=== PATIENT | male | born 1990 | race Caucasian/White ===

== ENCOUNTER 2017-07-12 09:47 | Outpatient (CLI) | payer MEDICAID ==
[~2017-07-12] VITALS: Ht 175.3 cm; Wt 96.8 kg
[2017-07-12] MEDS ORDERED: FLOMAX0.4 MG PO (10:09)
[2017-07-12] MEDS ORDERED: TENORMIN50 MG PO (10:10)
[2017-07-12] MEDS ORDERED: ATIVAN1 MG PO (10:10)
[2017-07-12] MEDS ORDERED: TIROSINT88 MCG PO (10:11)
[2017-07-12] MEDS ORDERED: COZAAR100 MG PO (10:11)
[2017-07-12] MEDS ORDERED: LIPITOR40 MG PO (10:12)
[2017-07-12] MEDS ORDERED: BUMEX2 MG PO (10:12)
[2017-07-12] MEDS ORDERED: XARELTO20 MG PO (10:13)
[2017-07-12] MEDS ORDERED: KLOR-CON M2020 MEQ PO (10:14)
[2017-07-12] MEDS ORDERED: PREDNISONE20 MG PO (10:14)
[2017-07-12 10:24] VITALS: BP 171/92; Ht 175.3 cm; Wt 96.8 kg
[2017-07-12 11:09] LABS: BASOPHILS 0.3 % (0-2); EOSINOPHILS 0.5 % (0-7); HEMATOCRIT 39.8 % (42.0-54.0); HEMOGLOBIN 12.9 g/dL (13.5-17.5); IMMATURE GRANULOCYTES 0.7 % (0-5); LYMPHOCYTES 28.4 % (15-50); MCH 29.4 pg (26.0-34.0); MCHC 32.4 g/dL (31.0-37.0); MCV 90.7 fL (80.0-100.0); MEAN PLATELET VOLUME 10.3 fL (7.4-10.4); MONOCYTES 7.4 % (2-11); NEUTROPHILS 62.7 % (40-80); PLATELET COUNT 235 10x3/uL (130-400); RBC 4.39 10x6/uL (4.20-6.10); RDW 14.3 % (11.5-14.5); WBC 10.9 10x3/uL (4.8-10.8)
[2017-07-12 11:28] LABS: INR 0.85 (0.85-1.17); PROTIME 11.3 SECONDS (11.6-15.0)
[2017-07-12 11:32] LABS: ANION GAP 10.2 mmol/L (8-16); CALCIUM 7.5 mg/dL (8.5-10.1); CARBON DIOXIDE 23.6 mmol/L (21.0-32.0); CREATININE - SERUM 1.7 mg/dL (0.6-1.3); POTASSIUM - SERUM 3.8 mmol/L (3.5-5.1)
== END 2017-07-12 16:35 | disposition home or self-care (01) ==
LOC: D.SP 09:47 → D.RAD 11:00 → D.SP 11:00
PROVIDERS: Radiology Vascular & Interventional Radiology
DX: R80.9 Proteinuria, unspecified (principal); N04.9 Nephrotic syndrome with unspecified morphologic changes; Z01.812 Encounter for preprocedural laboratory examination

== ENCOUNTER 2017-08-22 07:36 | Outpatient (CLI) | payer MEDICAID ==
[~2017-08-22] VITALS: Ht 175.3 cm; Wt 85.2 kg
[2017-08-22] VITALS (9 sets, daily range): BP systolic 107–150; BP diastolic 65–90; Ht 175.3 cm; Wt 85.2 kg
[~2017-08-22 07:36] MED LIST: ATIVAN1 MG PO; BUMEX2 MG PO; COZAAR100 MG PO; FLOMAX0.4 MG PO; KLOR-CON M2020 MEQ PO; LIPITOR40 MG PO; PREDNISONE20 MG PO; TENORMIN50 MG PO; TIROSINT88 MCG PO; XARELTO20 MG PO
[2017-08-22 08:07] LABS: BASOPHILS 0.2 % (0-2); EOSINOPHILS 0.3 % (0-7); HEMATOCRIT 36.1 % (42.0-54.0); HEMOGLOBIN 11.7 g/dL (13.5-17.5); IMMATURE GRANULOCYTES 0.9 % (0-5); LYMPHOCYTES 20.7 % (15-50); MCHC 32.4 g/dL (31.0-37.0); MCV 89.4 fL (80.0-100.0); MEAN PLATELET VOLUME 9.4 fL (7.4-10.4); MONOCYTES 7.1 % (2-11); NEUTROPHILS 70.8 % (40-80); PLATELET COUNT 252 10x3/uL (130-400); RBC 4.04 10x6/uL (4.20-6.10); RDW 14.5 % (11.5-14.5); WBC 12.4 10x3/uL (4.8-10.8)
[2017-08-22 08:34] LABS: ANION GAP 9.6 mmol/L (8-16); APTT 26.8 SECONDS (22.8-39.4); CALCIUM 7.7 mg/dL (8.5-10.1); CARBON DIOXIDE 27.2 mmol/L (21.0-32.0); INR 0.81 (0.85-1.17); POTASSIUM - SERUM 3.8 mmol/L (3.5-5.1); PROTIME 10.9 SECONDS (11.6-15.0)
[2017-08-22 14:09] LABS: BASOPHILS 0.3 % (0-2); EOSINOPHILS 0.5 % (0-7); HEMATOCRIT 33.8 % (42.0-54.0); HEMOGLOBIN 10.9 g/dL (13.5-17.5); IMMATURE GRANULOCYTES 0.9 % (0-5); LYMPHOCYTES 27.1 % (15-50); MCH 28.9 pg (26.0-34.0); MCHC 32.2 g/dL (31.0-37.0); MCV 89.7 fL (80.0-100.0); MEAN PLATELET VOLUME 9.5 fL (7.4-10.4); MONOCYTES 7.6 % (2-11); NEUTROPHILS 63.6 % (40-80); PLATELET COUNT 230 10x3/uL (130-400); RBC 3.77 10x6/uL (4.20-6.10); RDW 14.5 % (11.5-14.5); WBC 10.6 10x3/uL (4.8-10.8)
[2017-08-22 20:04] LABS: BASOPHILS 0.1 % (0-2); EOSINOPHILS 0.1 % (0-7); HEMATOCRIT 33.6 % (42.0-54.0); IMMATURE GRANULOCYTES 0.9 % (0-5); MCH 29.3 pg (26.0-34.0); MCHC 32.7 g/dL (31.0-37.0); MCV 89.4 fL (80.0-100.0); MEAN PLATELET VOLUME 9.8 fL (7.4-10.4); NEUTROPHILS 85.9 % (40-80); PLATELET COUNT 274 10x3/uL (130-400); RBC 3.76 10x6/uL (4.20-6.10); RDW 14.8 % (11.5-14.5); WBC 10.6 10x3/uL (4.8-10.8)
[2017-08-23 04:16] LABS: BASOPHILS 0.2 % (0-2); EOSINOPHILS 0 % (0-7); HEMATOCRIT 31.6 % (42.0-54.0); HEMOGLOBIN 10.2 g/dL (13.5-17.5); IMMATURE GRANULOCYTES 0.6 % (0-5); LYMPHOCYTES 13.2 % (15-50); MCHC 32.3 g/dL (31.0-37.0); MCV 89.8 fL (80.0-100.0); MEAN PLATELET VOLUME 9.9 fL (7.4-10.4); PLATELET COUNT 249 10x3/uL (130-400); RBC 3.52 10x6/uL (4.20-6.10); RDW 14.5 % (11.5-14.5); WBC 11.1 10x3/uL (4.8-10.8)
[2017-08-23 04:27] LABS: ANION GAP 7.9 mmol/L (8-16); CALCIUM 7.7 mg/dL (8.5-10.1); CARBON DIOXIDE 27.9 mmol/L (21.0-32.0); CREATININE - SERUM 3.2 mg/dL (0.6-1.3)
[2017-08-23 04:28] LABS: POTASSIUM - SERUM 4.8 mmol/L (3.5-5.1)
[2017-08-23 04:56] VITALS: BP 117/74
[2017-08-23 08:40] VITALS: BP 132/84
[2017-08-23 09:09] LABS: BASOPHILS 0.1 % (0-2); EOSINOPHILS 0.2 % (0-7); HEMATOCRIT 33.6 % (42.0-54.0); IMMATURE GRANULOCYTES 0.6 % (0-5); LYMPHOCYTES 15.3 % (15-50); MCH 29.3 pg (26.0-34.0); MCHC 32.7 g/dL (31.0-37.0); MCV 89.4 fL (80.0-100.0); MEAN PLATELET VOLUME 9.5 fL (7.4-10.4); MONOCYTES 7.4 % (2-11); NEUTROPHILS 76.4 % (40-80); PLATELET COUNT 246 10x3/uL (130-400); RBC 3.76 10x6/uL (4.20-6.10); RDW 14.4 % (11.5-14.5)
[2017-08-23 09:15] LABS: WBC 14.3 10x3/uL (4.8-10.8)
== END 2017-08-23 13:19 | disposition home or self-care (01) ==
LOC: D.SP 07:36 → D.M2 07:36 → D.RAD 10:00 → D.SP 10:00 → D.M2 12:09 → D.SP 12:09
PROVIDERS: Internal Medicine Nephrology; Radiology Vascular & Interventional Radiology
DX: N04.9 Nephrotic syndrome with unspecified morphologic changes (principal); R80.9 Proteinuria, unspecified; Z01.812 Encounter for preprocedural laboratory examination; I10 Essential (primary) hypertension

== ENCOUNTER 2018-04-08 16:55 | Inpatient (IN) | payer MEDICAID ==
[~2018-04-08] VITALS: Ht 175.3 cm; Wt 85.0 kg
[2018-04-08 21:14] LABS: BASOPHILS 0.4 % (0-2); EOSINOPHILS 0.3 % (0-7); HEMATOCRIT 34.4 % (42.0-54.0); IMMATURE GRANULOCYTES 0.5 % (0-5); LYMPHOCYTES 12.4 % (15-50); MCH 29.7 pg (26.0-34.0); MEAN PLATELET VOLUME 9.4 fL (7.4-10.4); MONOCYTES 5.1 % (2-11); NEUTROPHILS 81.3 % (40-80); PLATELET COUNT 210 10x3/uL (130-400); RDW 13.9 % (11.5-14.5)
[2018-04-08 21:30] LABS: ALBUMIN 0.7 g/dL (3.4-5.0); ANION GAP 13.8 mmol/L (8-16); BILIRUBIN - TOTAL 0.27 mg/dL (0.2-1.3); CARBON DIOXIDE 22.9 mmol/L (21.0-32.0); CREATININE - SERUM 5.2 mg/dL (0.6-1.3); POTASSIUM - SERUM 4.7 mmol/L (3.5-5.1)
[2018-04-08] MEDS ORDERED: K-DUR20 MEQ PO (22:09)
[2018-04-08 22:13] LABS: INR 0.83 (0.85-1.17)
[2018-04-08] MEDS ORDERED: METOLAZONE5 MG PO (22:25)
[2018-04-08] MEDS ORDERED: PREDNISONE10 MG PO (22:26)
[2018-04-08] MEDS ORDERED: XARELTO10 MG PO (22:28)
[2018-04-08] MEDS ORDERED: HEPARIN SOD5000 U/ML SC (22:31)
[2018-04-09] VITALS (7 sets, daily range): BP systolic 123–144; BP diastolic 77–94; Ht 175.3 cm; Wt 85.0 kg
--- NOTE | 2018-04-09 03:31 | NUR ---
PATIENT RESTING IN BED. RESPIRATIONS ARE EVEN AND UNLABORED. NO S/S OF DISTRESS. NO C/O PAIN. CALL LIGHT WITHIN REACH. WILL CPOC.
--- NOTE | 2018-04-09 08:16 | NUR ---
RECEIVED REPORT ON PATIENT WHO IS NPO FOR SURGERY THIS AM. DR MEJIA IN TO SEE PATIENT. NEW ORDERS RECEIVED. PATIENT HAS BEEN NPO SINCE MIDNIGHT. ON ROOM AIR. LEFT FA PIV SEEN WITH SALINE LOCK. PARENTS AT BEDSIDE. WILL MONITOR.
--- NOTE | 2018-04-09 12:39 | NUR ---
TO OR VIA BED.
--- NOTE | 2018-04-09 16:09 | NUR ---
STILL OFF FLOOR AT THIS TIEM.
--- NOTE | 2018-04-09 16:59 | NUR ---
RECEIVED BACK TO ROOM WITH SLING TO LEFT ARM. COMPRESSED NIKKI DRAIN SEEN TO ABDOMINAL AREA. IV OF NS INFUSING PER GRAVITY TO RIGHT HAND.
--- NOTE | 2018-04-09 17:38 | NUR ---
PAGE INTO [facility]LENA SULLIVAN APN FOR CONTINUATION OF MEDS. AWAITING CALL BACK.
--- NOTE | 2018-04-09 17:43 | NUR ---
MARLENA TO CALL BACK WITH NEW ORDERS.
--- NOTE | 2018-04-09 18:13 | NUR ---
WE ARE TO CONTINUE HOME MEDS BUT HOLD THE POTASSIUM AND METOLZONE AND XARELTO FOR NOW PER [facility] SULLIVAN APN.
--- NOTE | 2018-04-09 18:15 | NUR ---
PER DR MEJIA NOTE, PATIENT IS TO RESUME HIS LOVENOX PRIOR TO ADMISSION BUT I DO NOT SEE IT ON THE [facility] RECONCILATION LIST. PATIENT WAS TAKING HEPARIN AT HOME AND THIS WAS VERIFIED BY MYSELF WITH THE PATIENT AND THE PARENTS.
--- NOTE | 2018-04-09 19:15 | NUR ---
RESUMING CARE. PT LAYING IN BED, IV RT HAND SL , LEFT AVF DONE TODAY RESERVED LEFT ARM PT HAD OPEN UMBILICAL HERNIA NIKKI DRAIN IN PLACE PT C/O OF PAIN IN ABDOMEN ADVISED PT WE WOULD CALL TO GET SOMETHING FOR PAIN CL IN REACH WILL CONT TO MONITOR
--- NOTE | 2018-04-09 19:19 | NUR ---
CALL PLACED TO [facility]LENA SULLIVAN APN FOR PAIN MEDICATIONS FOR PATIENT. AWAITING CALL BACK.
--- NOTE | 2018-04-09 19:23 | NUR ---
MARLENA SULLIVAN APN TO CALL BACK WITH NEW ORDERS.
[2018-04-10 00:31] VITALS: BP 138/96
--- NOTE | 2018-04-10 06:00 | NUR ---
PT HAS NOT VOIDING SINCE SURGERY , HAD MARLENA SULLIVAN PAGED, I ADVISED I BLADDER SCANNED PT AND HE WAS HOLDING 877ML SE ADVISED TO DO AN IN AND OUT CATH. AND GIVE PTS 0900 FLOMAX, IN AND OUT DONE FLOMAX GIVEN TOLERATED WELL WILL CONT TO MONITOR
[2018-04-10 06:17] VITALS: BP 151/99
--- NOTE | 2018-04-10 07:24 | NUR ---
ROUNDING DONE WITH PATIENT INFORMED THAT HE IS NEEDING TO GET OUT OF BED FOR BREAKFAST THIS AM. LEFT ARM IS IN SLING AT THIS TIME. NIKKI DRAIN SEEN TO LEFT ABDOMINAL AREA WITH C/D/I DRESSING TO UMBILICAL AREA. DRAIN IS COMPRESSED. FAMILY AT BEDSIDE. SALINE LOCK PIV SEEN TO RIGHT HAND.
[2018-04-10 08:35] VITALS: BP 144/99
[2018-04-10 11:36] VITALS: BP 143/91
--- NOTE | 2018-04-10 13:48 | NUR ---
PATIENT WITH FAMILY BEEN AMBULATING IN THE HALLWAY UP TO THE NURSE STATION.
--- NOTE | 2018-04-10 15:03 | NUR ---
CALLED TO ROOM WITH COMPLAINT OF NOT VOIDING. BLADDER SCAN DONE WITH RESIDUAL OF 375 ML. CALL PLACED TO [facility]LENA SULLIVAN APN FOR ANY FURTHER ORDERS.
[2018-04-10 15:51] VITALS: BP 134/81
--- NOTE | 2018-04-10 16:47 | NUR ---
ANTONIO FERGUSON RN CHARGE TO SPEAK TO ARACELI KNIGHT APN R/T PATIENT NOT VOIDING YET. NO NEW FURTHER ORDERS AT THIS TIME.
--- NOTE | 2018-04-10 18:23 | NUR ---
KRUEGER CATH PLACED PAST USING A 16 FR COUDE TIP.
--- NOTE | 2018-04-10 19:18 | NUR ---
RESUMING PATIENT CARE. PATIENT IS ALERT AND ORIENTED. PATIENT IS STANDING AT SIDE OF BED. DENIES NEEDS. NO S/S OF DISTRESS. NO C/O PAIN. CALL LIGHT WITHIN REACH. WILL CPOC.
[2018-04-10 21:11] VITALS: BP 130/84
[2018-04-11] VITALS (8 sets, daily range): BP systolic 121–148; BP diastolic 54–90
--- NOTE | 2018-04-11 07:40 | NUR ---
ASSESSMENT COMPLETED. ALERT AND ORIENTED. LEFT ARM RESERVED. RIGHT HAND SL. DRSG TO LOWER ABD WITH DRAIN. KRUEGER CATH TO GRAVITY. UP AB RODERICK.WILL MONITOR
[2018-04-11 09:18] LABS: BASOPHILS 0.3 % (0-2); EOSINOPHILS 0.5 % (0-7); HEMATOCRIT 35.3 % (42.0-54.0); IMMATURE GRANULOCYTES 1.1 % (0-5); LYMPHOCYTES 13.1 % (15-50); MCH 29.5 pg (26.0-34.0); MCHC 31.2 g/dL (31.0-37.0); MCV 94.6 fL (80.0-100.0); MEAN PLATELET VOLUME 9.8 fL (7.4-10.4); PLATELET COUNT 222 10x3/uL (130-400); RBC 3.73 10x6/uL (4.20-6.10); RDW 14.5 % (11.5-14.5); WBC 11.3 10x3/uL (4.8-10.8)
[2018-04-11 09:41] LABS: ALBUMIN 0.9 g/dL (3.4-5.0); ANION GAP 17.5 mmol/L (8-16); BILIRUBIN - TOTAL 0.23 mg/dL (0.2-1.3); CALCIUM 7.7 mg/dL (8.5-10.1); CARBON DIOXIDE 19.9 mmol/L (21.0-32.0); MAGNESIUM - SERUM 3.1 mg/dL (1.8-2.4); POTASSIUM - SERUM 4.4 mmol/L (3.5-5.1); PROTEIN - SERUM 4.5 g/dL (6.4-8.2)
[2018-04-11 10:02] LABS: PHOSPHOROUS 10.8 mg/dL (2.5-4.9)
--- NOTE | 2018-04-11 12:00 | NUR ---
RESTING QUIETLY NAD NOTED
--- NOTE | 2018-04-11 13:40 | MORECARE ---
CASE MANAGEMENT DISCHARGE SUMMARY PATIENT: ISIDRO JONES UNIT: [id number] ADM DATE: 04/08/18 AGE: 27 : 88 SEX: M ROOM/BED: D.2131 AUTHOR: KRUNAL TELLES PHYSICIAN: REFERRING PHYSICIAN: JL MCKEON MD DATE OF SERVICE: 04/11/18 Discharge Plan Patient Name: ISIDRO JONES Facility: [facility]:[place] : 1990 Planned Disposition: Home with Home Health Anticipated Discharge Date: 04/12/18 Discharge Date: Expected LOS: 4 Initial Reviewer: [id number] Initial Review Date: 04/11/2018 Generated: 04/11/18 2:40 pm DCPIA - Discharge Planning Initial Assessment Updated by [email or web address]: Elliott Powell on 04/11/18 1:37 pm * Is the patient Alert and Oriented? Yes * How many steps to enter\exit or inside your home? NONE * PCP JL MCKEON * [facility] * Preadmission Environment Home with Family * ADLs Independent * Equipment Other * Other Equipment BLOOD PRESSURE CUFF NO MEDICAL EQUIPMENT PROVIDER PREFERENCE * List name and contact numbers for known caregivers / representatives who currently or will assist patient after discharge: HINA JONES, MOTHER, * Verbal permission to speak to the caregivers and representatives has been obtained from the patient. Yes * Community resources currently utilized None * Please name any agencies selected above. NONE * Additional services required to return to the preadmission environment? Yes * Can the patient safely return to the preadmission environment? Yes * Has this patient been hospitalized within the prior 30 days at any hospital? No External Providers External Provider: [facility] Next Contact Date: 04/11/2018 Service Request Date: Service Type: Resolution: Reviewer: Comments: Coverage Notice Reviewer: [id number] - Elliott Powell Notice Issued Date-Time: 04/11/2018 11:20 Notice Type: Patient Choice Letter Notice Delivered To: Patient Relationship to Patient: Veneer Jointer Name: Delivery Method: HAND - Hand Delivered Dolores Days: Prior Verbal Notification: Recipient Understood Notice: Yes Recipient Signature: Yes Med Rec Note Co-signed by Attending: Coverage Notice Comment: NO HOME HEALTH PREFERENCE Patient Name: ISIDRO JONES Page [id number] at 1340 All edits/amendments must be made on the electronic document DICTATION DATE: 04/11/18 1340 MOBILE MARKETING MANAGER: JOHN 04/11/18 1340 RPT#: [id number] DC DATE: STATUS: ADM IN [facility] [address] [place] [address] END OF REPORT
--- NOTE | 2018-04-11 13:55 | MORECARE ---
CASE MANAGEMENT DISCHARGE SUMMARY PATIENT: ISIDRO JONES UNIT: [id number] ADM DATE: 04/08/18 AGE: 27 : 88 SEX: M ROOM/BED: D.2138 AUTHOR: KRUNAL TELLES PHYSICIAN: REFERRING PHYSICIAN: JL MCKEON MD DATE OF SERVICE: 04/11/18 Discharge Plan Patient Name: ISIDRO JONES Facility: [facility]:[place] : 1990 Planned Disposition: Home with Home Health Anticipated Discharge Date: 04/12/18 Discharge Date: Expected LOS: 4 Initial Reviewer: [id number] Initial Review Date: 04/11/2018 Generated: 04/11/18 2:55 pm Comments DCP- Discharge Planning Updated by [id number]: Elliott Powell on 04/11/18 12:[address] Patient Name: ISIDRO JONES Admission Status: Elective Accout number: [id number] Admission Date: 04-08-2018 : 1990 Admission Diagnosis: Attending: JL MCKEON Current LOS: 3 Anticipated DC Date: 04-12-2018 Planned Disposition: Home with Home Health Primary Insurance: [place] PRIVATE [place] PLANNED EXTERNAL PROVIDER: [facility] Discharge Planning Comments: CM RECEIVED HOME HEALTH ORDER, MET WITH PT IN ROOM TO DISCUSS DISCHARGE PLANNING AND NEEDS. PT REPORTS LIVING AT HOME INDEPENDENTLY WITH PARENTS AND ADULT SISTER. PT HAS BLOOD PRESSURE MONITOR AND NO MEDICAL EQUIPMENT PROVIDER PREFERENCE. PT HAS NO OUTSIDE SERVICES ASSISTING IN THE HOME. PT IS NOT YET DOING OUTPATIENT DIALYSIS, BUT HAD A FISTULA CREATED FOR WHEN HE MAY NEED IT. CM DISCUSSED AVAILABILITY OF HOME HEALTH, REHAB SERVICES AND MEDICAL EQUIPMENT. PT WILL ACCEPT HOME HEALTH, REPORTS H IS SISTER TO BE A TEACHABLE CAREGIVER IN HOME. PT REPORTS HIS PARENTS WILL PICK HIM UP FOR DISCHARGE HOME TOMORROW. PT HAS NO PREFERENCE ON HOME HEALTH PROVIDER, CHOICE LETTER SIGNED. PT DENIES FURTHER DISCHARGE NEEDS. CM SPOKE TO TAMIKA OF [facility], DISCUSSED REFERRAL. TAMIKA THINKS PT MAY BE WITHIN THE SERVICE AREA FOR [facility]. CM CALLED [facility], , SPOKE TO EZIO AND PROVIDED REFERRAL INFORMATION. CM FAXED REFERRAL FOR HOME HEALTH TO [facility] AT [phone]. CM WAITING ACCEPTANCE DETERMINATION FROM [facility]. Charger Operator Helper: Elliott Powell DCPIA - Discharge Planning Initial Assessment Updated by [email or web address]: Elliott Powell on 04/11/18 1:37 pm * Is the patient Alert and Oriented? Yes * How many steps to enter\exit or inside your home? NONE * PCP JL MCKEON * [facility] * Preadmission Environment Home with Family * ADLs Independent * Equipment Other * Other Equipment BLOOD PRESSURE CUFF NO MEDICAL EQUIPMENT PROVIDER PREFERENCE * List name and contact numbers for known caregivers / representatives who currently or will assist patient after discharge: HINA JONES, MOTHER, * Verbal permission to speak to the caregivers and representatives has been obtained from the patient. Yes * Community resources currently utilized None * Please name any agencies selected above. NONE * Additional services required to return to the preadmission environment? Yes * Can the patient safely return to the preadmission environment? Yes * Has this patient been hospitalized within the prior 30 days at any hospital? No Coverage Notice Reviewer: [id number] - Elliott Powell Notice Issued Date-Time: 04/11/2018 11:20 Notice Type: Patient Choice Letter Notice Delivered To: Patient Relationship to Patient: Fan Engine Engineer Name: Delivery Method: HAND - Hand Delivered Dolores Days: Prior Verbal Notification: Recipient Understood Notice: Yes Recipient Signature: Yes Med Rec Note Co-signed by Attending: Coverage Notice Comment: NO HOME HEALTH PREFERENCE Last DP export: 04/11/18 12:40 p Patient Name: ISIDRO JONES Page 15459 at 1355 All edits/amendments must be made on the electronic document DICTATION DATE: 04/11/18 1355 E COMMERCE ARCHITECT: JOHN 04/11/18 1355 RPT#: [id number] DC DATE: STATUS: ADM IN [facility] [address] [place] [address] END OF REPORT
--- NOTE | 2018-04-11 17:30 | MORECARE ---
CASE MANAGEMENT DISCHARGE SUMMARY PATIENT: ISIDRO JONES UNIT: [id number] ADM DATE: 04/08/18 AGE: 27 : 88 SEX: M ROOM/BED: D.2139 AUTHOR: KRUNAL TELLES PHYSICIAN: REFERRING PHYSICIAN: JL MCKEON MD DATE OF SERVICE: 04/11/18 Discharge Plan Patient Name: ISIDRO JONES Facility: [facility]:[place] : 1990 Planned Disposition: Home with Home Health Anticipated Discharge Date: 04/12/18 Discharge Date: Expected LOS: 4 Initial Reviewer: [email or web address] Initial Review Date: 04/11/2018 Generated: 04/11/18 6:30 pm Comments DCP- Discharge Planning Updated by [id number]: Elliott Ji on 04/11/18 4:[address] Patient Name: ISIDRO JONES Admission Status: Elective Accout number: [id number] Admission Date: 04-08-2018 : 1990 Admission Diagnosis: Attending: JL MCKEON Current LOS: 3 Anticipated DC Date: 04-12-2018 Planned Disposition: Home with Home Health Primary Insurance: [place] PRIVATE [place] PLANNED EXTERNAL PROVIDER: [facility] Discharge Planning Comments: CM RECEIVED HOME HEALTH ORDER, MET WITH PT IN ROOM TO DISCUSS DISCHARGE PLANNING AND NEEDS. PT REPORTS LIVING AT HOME INDEPENDENTLY WITH PARENTS AND ADULT SISTER. PT HAS BLOOD PRESSURE MONITOR AND NO MEDICAL EQUIPMENT PROVIDER PREFERENCE. PT HAS NO OUTSIDE SERVICES ASSISTING IN THE HOME. PT IS NOT YET DOING OUTPATIENT DIALYSIS, BUT HAD A FISTULA CREATED FOR WHEN HE MAY NEED IT. CM DISCUSSED AVAILABILITY OF HOME HEALTH, REHAB SERVICES AND MEDICAL EQUIPMENT. PT WILL ACCEPT HOME HEALTH, REPORTS H IS SISTER TO BE A TEACHABLE CAREGIVER IN HOME. PT REPORTS HIS PARENTS WILL PICK HIM UP FOR DISCHARGE HOME TOMORROW. PT HAS NO PREFERENCE ON HOME HEALTH PROVIDER, CHOICE LETTER SIGNED. PT DENIES FURTHER DISCHARGE NEEDS. CM SPOKE TO TAMIKA OF [facility], DISCUSSED REFERRAL. TAMIKA THINKS PT MAY BE WITHIN THE SERVICE AREA FOR [facility]. CM CALLED [facility], , SPOKE TO EZIO AND PROVIDED REFERRAL INFORMATION. CM FAXED REFERRAL FOR HOME HEALTH TO [facility] AT [phone]. CM WAITING ACCEPTANCE DETERMINATION FROM [facility]. Electric Motor Repair Supervisor: Elliott Ji Appended by Elliott Ji on 04/11/2018 17:22 STOCKBROKING DEALER: CM RECEIVED CALL FROM EZIO OF [facility], THEY WILL ACCEPT PT AND PLAN FOR HOME HEALTH ADMISSION ON 04-13-18. FOR DISCHARGE, NOTIFY [facility] AT [phone]. FAX DISCHARGE INFORMATION TO [facility] AT [phone]. ELLIOTT JI, CASE MANAGEMENT DCPIA - Discharge Planning Initial Assessment Updated by [email or web address]: Elliott Ji on 04/11/18 1:37 pm * Is the patient Alert and Oriented? Yes * How many steps to enter\exit or inside your home? NONE * PCP JL MCKEON * [facility] * Preadmission Environment Home with Family * ADLs Independent * Equipment Other * Other Equipment BLOOD PRESSURE CUFF NO MEDICAL EQUIPMENT PROVIDER PREFERENCE * List name and contact numbers for known caregivers / representatives who currently or will assist patient after discharge: HINA JONES, MOTHER, * Verbal permission to speak to the caregivers and representatives has been obtained from the patient. Yes * Community resources currently utilized None * Please name any agencies selected above. NONE * Additional services required to return to the preadmission environment? Yes * Can the patient safely return to the preadmission environment? Yes * Has this patient been hospitalized within the prior 30 days at any hospital? No Coverage Notice Reviewer: [id number] - Elliott Ji Notice Issued Date-Time: 04/11/2018 11:20 Notice Type: Patient Choice Letter Notice Delivered To: Patient Relationship to Patient: Music Publisher Name: Delivery Method: HAND - Hand Delivered Dolores Days: Prior Verbal Notification: Recipient Understood Notice: Yes Recipient Signature: Yes Med Rec Note Co-signed by Attending: Coverage Notice Comment: NO HOME HEALTH PREFERENCE Last DP export: 04/11/18 12:55 p Patient Name: ISIDRO JONES Page 92432 at 1730 All edits/amendments must be made on the electronic document DICTATION DATE: 04/11/181729 MEDICARE NURSE: JOHN 04/11/181729 RPT#: [id number] DC DATE: STATUS: ADM IN [facility] [address] [place] [address] END OF REPORT
--- NOTE | 2018-04-11 19:42 | NUR ---
RESUMING PATIENT CARE. PATIENT IS ALERT AND ORIENTED. PATIENT UP WALKING. RESPIRATIONS ARE EVEN AND UNLABORED. DENIES NEEDS. NO S/S OF DISTRESS. NO C/O PAIN. CALL LIGHT WITHIN REACH. WILL CPOC.
[2018-04-12] VITALS: BP 125/78
[2018-04-12 04:00] VITALS: BP 142/81
--- NOTE | 2018-04-12 05:54 | NUR ---
PATIENT INFORMED RN THAT HE IS PASSING GAS. NO BOWEL MOVEMENT.
[2018-04-12 08:33] LABS: BASOPHILS 0.2 % (0-2); HEMOGLOBIN 8.8 g/dL (13.5-17.5); LYMPHOCYTES 9.6 % (15-50); MCH 29.2 pg (26.0-34.0); MCHC 31.8 g/dL (31.0-37.0); MEAN PLATELET VOLUME 9.7 fL (7.4-10.4); MONOCYTES 9.6 % (2-11); NEUTROPHILS 78.6 % (40-80); RBC 3.01 10x6/uL (4.20-6.10); RDW 14.3 % (11.5-14.5)
[2018-04-12 08:45] VITALS: BP 133/89
[2018-04-12 08:52] LABS: HEMATOCRIT 27.7 % (42.0-54.0); PLATELET COUNT 150 10x3/uL (130-400)
[2018-04-12 09:00] LABS: ALBUMIN 0.8 g/dL (3.4-5.0); ANION GAP 18.4 mmol/L (8-16); BILIRUBIN - TOTAL 0.26 mg/dL (0.2-1.3); CARBON DIOXIDE 17.8 mmol/L (21.0-32.0); CREATININE - SERUM 8.3 mg/dL (0.6-1.3); POTASSIUM - SERUM 4.2 mmol/L (3.5-5.1); PROTEIN - SERUM 3.9 g/dL (6.4-8.2)
[2018-04-12 09:06] LABS: CALCIUM 6.6 mg/dL (8.5-10.1); PHOSPHOROUS 10.9 mg/dL (2.5-4.9)
--- NOTE | 2018-04-12 10:37 | NUR ---
RESUMING PT CARE, PT LAYING IN BED ALERT AND ORIENTED X3, STATES PAIN IS AT A 8 ON PAIN SCALE, PAIN MED GIVEN. LINDSEY BARR APRN AT BEDSIDE AND TOLD PT THAT HIS RENAL FUNCTIONS ARE WORSE AND WILL NEED TO START DIALYSIS. CALL LIGHT IN REACH, WILL CONTINUE TO MONITOR AND FOLLOW PLAN OF CARE.
[2018-04-12 15:00] LABS: HEMATOCRIT 27.4 % (42.0-54.0); HEMOGLOBIN 9.3 g/dL (13.5-17.5); MCH 30.6 pg (26.0-34.0); MCHC 33.9 g/dL (31.0-37.0); MCV 90.1 fL (80.0-100.0); MEAN PLATELET VOLUME 9.1 fL (7.4-10.4); NEUTROPHILS 82.9 % (40-80); PLATELET COUNT 154 10x3/uL (130-400); RBC 3.04 10x6/uL (4.20-6.10); RDW 13.3 % (11.5-14.5); WBC 6.7 10x3/uL (4.8-10.8)
[2018-04-12 15:07] LABS: ANION GAP 18.5 mmol/L (8-16); CARBON DIOXIDE 18.3 mmol/L (21.0-32.0); CREATININE - SERUM 8.3 mg/dL (0.6-1.3); POTASSIUM - SERUM 3.8 mmol/L (3.5-5.1)
[2018-04-12 15:10] LABS: CALCIUM 6.9 mg/dL (8.5-10.1)
[2018-04-12 15:57] VITALS: BP 133/77
[2018-04-12 21:30] VITALS: BP 126/73
[2018-04-13 03:47] VITALS: BP 126/78
--- NOTE | 2018-04-13 05:47 | NUR ---
RESTING IN BED WITH EYES CLOSED. NO S/S OF DISTRESS OBSERVED, WILL CONT. POC.
[2018-04-13 05:56] LABS: BASOPHILS 0.1 % (0-2); EOSINOPHILS 0.7 % (0-7); HEMATOCRIT 27.6 % (42.0-54.0); IMMATURE GRANULOCYTES 0.8 % (0-5); MCH 29.6 pg (26.0-34.0); MCHC 32.6 g/dL (31.0-37.0); MCV 90.8 fL (80.0-100.0); MEAN PLATELET VOLUME 10.1 fL (7.4-10.4); MONOCYTES 8.5 % (2-11); NEUTROPHILS 80.9 % (40-80); PLATELET COUNT 170 10x3/uL (130-400); RBC 3.04 10x6/uL (4.20-6.10); RDW 13.6 % (11.5-14.5); WBC 7.1 10x3/uL (4.8-10.8)
[2018-04-13 06:08] LABS: ALBUMIN 0.7 g/dL (3.4-5.0); ANION GAP 19.6 mmol/L (8-16); BILIRUBIN - TOTAL 0.23 mg/dL (0.2-1.3); CARBON DIOXIDE 18.5 mmol/L (21.0-32.0); CREATININE - SERUM 8.7 mg/dL (0.6-1.3); POTASSIUM - SERUM 4.1 mmol/L (3.5-5.1)
[2018-04-13 06:09] LABS: CALCIUM 6.9 mg/dL (8.5-10.1)
--- NOTE | 2018-04-13 07:30 | NUR ---
RECEIVED A/A/OX4. DENIES ANY PAIN AT THIS TIME AND NO REQUESTS VOICED. ASSESSMENT COMPLETED. DRESSING TO [facility] DUE TO HERNIA REPAIR DONE ON 04/09/18. LEFT AVF SITE BRUISED. BRUIT AND THRILL +. KRUEGER PATENT AND DRAINING LIGHT YELLOW COLORED URINE. WILL CPOC. REMAINS NPO FOR SURGERY TODAY.
[2018-04-13 08:46] VITALS: BP 131/80
--- NOTE | 2018-04-13 09:30 | NUR ---
EMMY NEEDS AT THIS TIME. FAMILY AT BS. CALL LIGHT IN REACH. WILL CONT. PLAN OF CARE.
--- NOTE | 2018-04-13 14:17 | NUR ---
TO SURGERY VIA BED.
[2018-04-13 16:25] VITALS: BP 134/65
--- NOTE | 2018-04-13 16:52 | NUR ---
RETURNED TO ROOM VIA BED FROM SURGERY. A/A/OX4. STATES A LITTLE BIT OF STINGING PAIN AROUND INSERTION SITE, BUT HEAVIEST PAIN HAS BEEN ALLEVIATED. V/S STABLE. ICE BAG PLACE TO OPERATIVE SITE.
--- NOTE | 2018-04-13 17:01 | MORECARE ---
CASE MANAGEMENT DISCHARGE SUMMARY PATIENT: ISIDRO JONES UNIT: [id number] ADM DATE: 04/08/18 AGE: 27 : 86 SEX: M ROOM/BED: D.2131 AUTHOR: KRUNAL TELLES PHYSICIAN: REFERRING PHYSICIAN: JL MCKEON MD DATE OF SERVICE: 04/13/18 Discharge Plan Patient Name: ISIDRO JONES Facility: [facility]:[place] : 1990 Planned Disposition: Home with Home Health Anticipated Discharge Date: 04/12/18 Discharge Date: Expected LOS: 4 Initial Reviewer: [email or web address] Initial Review Date: 04/11/2018 Generated: 04/13/18 6:01 pm Comments DCP- Discharge Planning Updated by [id number]: Isamar Ahmadi on 04/13/18 4:[address] ORDER RECEIVED: to make arrangements for OP HD in [place]. CM spoke to Polina MUÑOZ who stated the patient is going to be new to hemodialysis and his first dialysis will be today post hemosplit placement. She stated that the patient will need to go to [place] as that is the only facility close to where he lives. Cm asked that she order the hepatitis panel and HIV. She stated they no longer require HIV testing. Hepatitis panel ordered. Cm faxed Admission intake form, facesheet, H&P, CXR, Progress notes, all hospital labs, with pending hepatitis panel, medication list with allergies listed at the top to [facility]. Cm left Stephanie Kim a message but no return call as it is Sunday and she only works [employer]. No operative report to fax at this time in the chart. CM will continue to follow and will assist as needed with dc plans/needs. Isamar Ahmadi Rn, [facility] DCP- Discharge Planning Updated by [id number]: Elliott Ji on 04/11/18 4:[address] Patient Name: ISIDRO JONES Admission Status: Elective Accout number: [id number] Admission Date: 04-08-2018 : 1990 Admission Diagnosis: Attending: JL MCKEON Current LOS: 3 Anticipated DC Date: 04-12-2018 Planned Disposition: Home with Home Health Primary Insurance: [place] PRIVATE [place] PLANNED EXTERNAL PROVIDER: [facility] Discharge Planning Comments: CM RECEIVED HOME HEALTH ORDER, MET WITH PT IN ROOM TO DISCUSS DISCHARGE PLANNING AND NEEDS. PT REPORTS LIVING AT HOME INDEPENDENTLY WITH PARENTS AND ADULT SISTER. PT HAS BLOOD PRESSURE MONITOR AND NO MEDICAL EQUIPMENT PROVIDER PREFERENCE. PT HAS NO OUTSIDE SERVICES ASSISTING IN THE HOME. PT IS NOT YET DOING OUTPATIENT DIALYSIS, BUT HAD A FISTULA CREATED FOR WHEN HE MAY NEED IT. CM DISCUSSED AVAILABILITY OF HOME HEALTH, REHAB SERVICES AND MEDICAL EQUIPMENT. PT WILL ACCEPT HOME HEALTH, REPORTS H IS SISTER TO BE A TEACHABLE CAREGIVER IN HOME. PT REPORTS HIS PARENTS WILL PICK HIM UP FOR DISCHARGE HOME TOMORROW. PT HAS NO PREFERENCE ON HOME HEALTH PROVIDER, CHOICE LETTER SIGNED. PT DENIES FURTHER DISCHARGE NEEDS. CM SPOKE TO T[facility]IKA OF [facility] , DISCUSSED REFERRAL. TAMIKA THINKS PT MAY BE WITHIN THE SERVICE AREA FOR [facility]. CM CALLED [facility], , SPOKE TO ISAMAR AND PROVIDED REFERRAL INFORMATION. CM FAXED REFERRAL FOR HOME HEALTH TO [facility] AT [phone]. CM WAITING ACCEPTANCE DETERMINATION FROM [facility]. Bank Operations Officer: Elliott Ji Appended by Elliott Ji on 04/11/2018 17:22 RV REPAIR TECHNICIAN: CM RECEIVED CALL FROM ISAMAR OF [facility], THEY WILL ACCEPT PT AND PLAN FOR HOME HEALTH ADMISSION ON 04-13-18. FOR DISCHARGE, NOTIFY [facility] AT [phone]. FAX DISCHARGE INFORMATION TO [facility] AT [phone]. ELLIOTT JI, CASE MANAGEMENT DCPIA - Discharge Planning Initial Assessment Updated by [email or web address]: Elliott Ji on 04/11/18 1:37 pm * Is the patient Alert and Oriented? Yes * How many steps to enter\exit or inside your home? NONE * PCP JL MCKEON * [facility] * Preadmission Environment Home with Family * ADLs Independent * Equipment Other * Other Equipment BLOOD PRESSURE CUFF NO MEDICAL EQUIPMENT PROVIDER PREFERENCE * List name and contact numbers for known caregivers / representatives who currently or will assist patient after discharge: HINA JONES, MOTHER, * Verbal permission to speak to the caregivers and representatives has been obtained from the patient. Yes * Community resources currently utilized None * Please name any agencies selected above. NONE * Additional services required to return to the preadmission environment? Yes * Can the patient safely return to the preadmission environment? Yes * Has this patient been hospitalized within the prior 30 days at any hospital? No Coverage Notice Reviewer: [email or web address] Kati Ji Notice Issued Date-Time: 04/11/2018 11:20 Notice Type: Patient Choice Letter Notice Delivered To: Patient Relationship to Patient: Roof Cement And Paint Maker Helper Name: Delivery Method: HAND - Hand Delivered Dolores Days: Prior Verbal Notification: Recipient Understood Notice: Yes Recipient Signature: Yes Med Rec Note Co-signed by Attending: Coverage Notice Comment: NO HOME HEALTH PREFERENCE Last DP export: 04/11/18 4:30 p Patient Name: ISIDRO JONES Page [id number] at 1701 All edits/amendments must be made on the electronic document DICTATION DATE: 04/13/181699 MATERIAL CONTROL ANALYST: JOHN 04/13/181699 RPT#: [id number] DC DATE: STATUS: ADM IN [facility] [address] [place] [address] END OF REPORT
--- NOTE | 2018-04-13 17:08 | MORECARE ---
CASE MANAGEMENT DISCHARGE SUMMARY PATIENT: ISIDRO JONES UNIT: [id number] ADM DATE: 04/08/18 AGE: 27 : [birth year] SEX: M ROOM/BED: D.2131 AUTHOR: KRUNAL TELLES PHYSICIAN: REFERRING PHYSICIAN: JL MCKEON MD DATE OF SERVICE: 04/13/18 Discharge Plan Patient Name: ISIDRO JONES Facility: [facility]:[place] : 1990 Planned Disposition: Home with Home Health Anticipated Discharge Date: 04/12/18 Discharge Date: Expected LOS: 4 Initial Reviewer: [email or web address] Initial Review Date: 04/11/2018 Generated: 04/13/18 6:08 pm Comments DCP- Discharge Planning Updated by [email or web address]: Isamar Ahmadi on 04/13/18 4:[address] ORDER RECEIVED: to make arrangements for OP HD in [place]. CM spoke to Polina MUÑOZ who stated the patient is going to be new to hemodialysis and his first dialysis will be today post hemosplit placement. She stated that the patient will need to go to [place] as that is the only facility close to where he lives. Cm asked that she order the hepatitis panel and HIV. She stated they no longer require HIV testing. Hepatitis panel ordered. Cm faxed Admission intake form, facesheet, H&P, CXR, Progress notes, all hospital labs, with pending hepatitis panel, medication list with allergies listed at the top to [facility]. Cm left Stephanie Kim a message but no return call as it is Sunday and she only works [employer]. No operative report to fax at this time in the chart. CM will continue to follow and will assist as needed with dc plans/needs. Isamar Ahmadi Rn, [facility] DCP- Discharge Planning Updated by [email or web address]: Elliott Ji on 04/11/18 4:[address] Patient Name: ISIDRO JONES Admission Status: Elective Accout number: [id number] Admission Date: 04-08-2018 : 1990 Admission Diagnosis: Attending: JL MCKEON Current LOS: 3 Anticipated DC Date: 04-12-2018 Planned Disposition: Home with Home Health Primary Insurance: [place] PRIVATE OPTIONS [place] PLANNED EXTERNAL PROVIDER: [facility] Discharge Planning Comments: CM RECEIVED HOME HEALTH ORDER, MET WITH PT IN ROOM TO DISCUSS DISCHARGE PLANNING AND NEEDS. PT REPORTS LIVING AT HOME INDEPENDENTLY WITH PARENTS AND ADULT SISTER. PT HAS BLOOD PRESSURE MONITOR AND NO MEDICAL EQUIPMENT PROVIDER PREFERENCE. PT HAS NO OUTSIDE SERVICES ASSISTING IN THE HOME. PT IS NOT YET DOING OUTPATIENT DIALYSIS, BUT HAD A FISTULA CREATED FOR WHEN HE MAY NEED IT. CM DISCUSSED AVAILABILITY OF HOME HEALTH, REHAB SERVICES AND MEDICAL EQUIPMENT. PT WILL ACCEPT HOME HEALTH, REPORTS H IS SISTER TO BE A TEACHABLE CAREGIVER IN HOME. PT REPORTS HIS PARENTS WILL PICK HIM UP FOR DISCHARGE HOME TOMORROW. PT HAS NO PREFERENCE ON HOME HEALTH PROVIDER, CHOICE LETTER SIGNED. PT DENIES FURTHER DISCHARGE NEEDS. CM SPOKE TO TAMIKA OF CARE , DISCUSSED REFERRAL. TAMIKA THINKS PT MAY BE WITHIN THE SERVICE AREA FOR [facility]. CM CALLED [facility], , SPOKE TO ISAMAR AND PROVIDED REFERRAL INFORMATION. CM FAXED REFERRAL FOR HOME HEALTH TO [facility] AT [phone]. CM WAITING ACCEPTANCE DETERMINATION FROM [facility]. Sorting Grapple Operator: Elliott Ji Appended by Elliott Ji on 04/11/2018 17:22 DENTAL MANAGER: CM RECEIVED CALL FROM ISAMAR OF [facility], THEY WILL ACCEPT PT AND PLAN FOR HOME HEALTH ADMISSION ON 04-13-18. FOR DISCHARGE, NOTIFY [facility] AT [phone]. FAX DISCHARGE INFORMATION TO [facility] AT [phone]. ELLIOTT JI, CASE MANAGEMENT DCPIA - Discharge Planning Initial Assessment Updated by [id number]: Elliott Ji on 04/11/18 1:37 pm * Is the patient Alert and Oriented? Yes * How many steps to enter\exit or inside your home? NONE * PCP JL MCKEON * [facility]acy [facility] * Preadmission Environment Home with Family * ADLs Independent * Equipment Other * Other Equipment BLOOD PRESSURE CUFF NO MEDICAL EQUIPMENT PROVIDER PREFERENCE * List name and contact numbers for known caregivers / representatives who currently or will assist patient after discharge: HINA JONES, MOTHER, * Verbal permission to speak to the caregivers and representatives has been obtained from the patient. Yes * Community resources currently utilized None * Please name any agencies selected above. NONE * Additional services required to return to the preadmission environment? Yes * Can the patient safely return to the preadmission environment? Yes * Has this patient been hospitalized within the prior 30 days at any hospital? No Coverage Notice Reviewer: [id number] Kati Ji Notice Issued Date-Time: 04/11/2018 11:20 Notice Type: Patient Choice Letter Notice Delivered To: Patient Relationship to Patient: Apprenticeship Representative Name: Delivery Method: HAND - Hand Delivered Dolores Days: Prior Verbal Notification: Recipient Understood Notice: Yes Recipient Signature: Yes Med Rec Note Co-signed by Attending: Coverage Notice Comment: NO HOME HEALTH PREFERENCE Last DP export: 04/13/18 4:01 pm Patient Name: ISIDRO JONES Page [id number] at 1708 All edits/amendments must be made on the electronic document DICTATION DATE: 04/13/181706 SALON MANAGER: JOHN 04/13/181706 RPT#: [id number] DC DATE: STATUS: ADM IN [facility] [address] [place] [address] END OF REPORT
--- NOTE | 2018-04-13 17:56 | NUR ---
RESTING QUIETLY. DENIES ANY PAIN, VS STABLE, DRESSING C/D/I.
--- NOTE | 2018-04-13 20:31 | NUR ---
RECIEVED UP AMBULATING AROUND HALLWAY WITH MOTHER. ALERT AND ORIENTED X4. LEFT ARM RESERVED PALPABLE WITH GOOD BRUIT AND TRILL. IV TO RIGHT HAND AND HEMOSPLIT TO RIGHT CHEST. NO REDNESS OR SWELLING TO SITES AND DRESSINGS INTACT. DSG X2 TO LOWER ABD CDI. BRUISING TO LEFT UUPER AND LOWER ARM AND TO LOWER ABD. NIKKI DRAIN TO LL ABD WITH SMALL AMT OF SEROSANGEOUS DRAINAGE. REQUEST A SANDWICH TRAY STATING HE'S HUNGRY. TRAY GIVEN AND DENIES ANY OTHER NEEDS.
--- NOTE | 2018-04-13 22:16 | NUR ---
IN DIALYSIS AT THISTIME.
[2018-04-14] VITALS (7 sets, daily range): BP systolic 117–149; BP diastolic 73–90
[2018-04-14 05:39] LABS: BASOPHILS 0.5 % (0-2); EOSINOPHILS 1.8 % (0-7); HEMATOCRIT 25.8 % (42.0-54.0); HEMOGLOBIN 8.5 g/dL (13.5-17.5); IMMATURE GRANULOCYTES 0.9 % (0-5); LYMPHOCYTES 10.3 % (15-50); MCH 29.6 pg (26.0-34.0); MCHC 32.9 g/dL (31.0-37.0); MCV 89.9 fL (80.0-100.0); MEAN PLATELET VOLUME 10.2 fL (7.4-10.4); MONOCYTES 8.7 % (2-11); NEUTROPHILS 77.8 % (40-80); PLATELET COUNT 165 10x3/uL (130-400); RBC 2.87 10x6/uL (4.20-6.10); RDW 13.7 % (11.5-14.5); WBC 5.6 10x3/uL (4.8-10.8)
[2018-04-14 06:49] LABS: ALBUMIN 0.7 g/dL (3.4-5.0); BILIRUBIN - TOTAL 0.18 mg/dL (0.2-1.3); CARBON DIOXIDE 22.8 mmol/L (21.0-32.0); PROTEIN - SERUM 3.8 g/dL (6.4-8.2)
[2018-04-14 06:53] LABS: ANION GAP 14.4 mmol/L (8-16); CREATININE - SERUM 6.2 mg/dL (0.6-1.3); POTASSIUM - SERUM 3.2 mmol/L (3.5-5.1)
[2018-04-14 06:55] LABS: CALCIUM 6.7 mg/dL (8.5-10.1)
--- NOTE | 2018-04-14 07:23 | NUR ---
ROUNDING DONE WITH PATIENT RESTING WITH HOB UP AT 30 DEGREES. RESP ARE EVEN. MOTHER IS ASLEEP IN CHAIR. RIGHT HAND PIV SEEN WITH SALINE LOCK. RIGHT CHEST HEMISPLIT SEEN WITH C/D/I DRESSING. RESEV. LEFT ARM WITH AVF. WILL CHECK FOR BRUIT AND THRILL WHEN AWAKE. KRUEGER CATH SEEN PATENT WITH CLEAR YELLOW URINE.
--- NOTE | 2018-04-14 11:19 | NUR ---
AM MEDS GIVEN. PATIENT IS INSTRCUTED IN BLADDER TRAINING AND TO CALL ME IF HE BECOMES TO UNCOMFORTABLE. KRUEGER CATH IS CLAMPED AT THIS TIME.
--- NOTE | 2018-04-14 14:08 | NUR ---
1407-PATIENT EDUCATION GIVEN FOR DIALYSIS AND DIET R/T HIGH AND LOW POTASSIUM.
--- NOTE | 2018-04-14 16:36 | NUR ---
BLADDER RELEASED FROM CLAMPED, EMPTIED 350 CC URINE. CLAMPED AGAIN.
--- NOTE | 2018-04-14 17:50 | NUR ---
SITTING IN CHAIR EATING SUPPER. DENIES NEEDS AT THIS TIME. STILL WITH BLADDER TRAINING.
--- NOTE | 2018-04-14 20:03 | NUR ---
RECIEVED UP IN BED WITH EYES OPEN AND TV ON. ALERT AND ORIENTED X 4. CONT. TO DO BLADDER TRAINING. NIKKI DRAIN IN PLACE WITH NO DRAINAGE AT THIS TIME F/C INTACT WITH SOME CLEAR YELLOW URINE IN DRAINAGE BAG. IV TO RIGHT HAND SL WITH DSG INTACT. HEMOSPLIT TO RIGHT CHEST WITH DSG CDI. LEFT ARM RESERVED D/T AVF.
[2018-04-15 00:36] VITALS: BP 125/74
[2018-04-15 05:29] VITALS: BP 134/863
[2018-04-15 06:56] LABS: BASOPHILS 0.5 % (0-2); EOSINOPHILS 1.8 % (0-7); HEMATOCRIT 26.8 % (42.0-54.0); HEMOGLOBIN 8.7 g/dL (13.5-17.5); IMMATURE GRANULOCYTES 0.9 % (0-5); LYMPHOCYTES 13.1 % (15-50); MCH 29.4 pg (26.0-34.0); MCHC 32.5 g/dL (31.0-37.0); MCV 90.5 fL (80.0-100.0); MEAN PLATELET VOLUME 10.2 fL (7.4-10.4); NEUTROPHILS 72.7 % (40-80); PLATELET COUNT 156 10x3/uL (130-400); RBC 2.96 10x6/uL (4.20-6.10); WBC 6.6 10x3/uL (4.8-10.8)
--- NOTE | 2018-04-15 07:20 | NUR ---
ASSESSMENT COMPLETED. AWAKE AND ALERT. HE HAS A HEMOSPLIT IN THE RIGHT CHEST. A LVF IN THE LEFT ARM. DRSG TO ABD WITH A NIKKI DRAIN. KRUEGER CATH PATENT. FOR DIALYSIS TODAY
[2018-04-15 07:22] LABS: ALBUMIN 0.7 g/dL (3.4-5.0); BILIRUBIN - TOTAL 0.18 mg/dL (0.2-1.3); CARBON DIOXIDE 22.1 mmol/L (21.0-32.0); CREATININE - SERUM 6.7 mg/dL (0.6-1.3); POTASSIUM - SERUM 3.1 mmol/L (3.5-5.1); PROTEIN - SERUM 3.8 g/dL (6.4-8.2)
--- NOTE | 2018-04-15 08:03 | NUR ---
RESTING QUIETLY NAD NOTED
[2018-04-15 09:31] VITALS: BP 131/80
[2018-04-15 12:49] VITALS: BP 135/71
--- NOTE | 2018-04-15 13:53 | NUR ---
Nutrition follow-up/consult: Diet: renal PO Intake ~75% average of meals; pt has been npo x several days due to surgery Pt is new to dialysis Albumin very low; may increase as fluid removed. Wt: 184# PO intake is good at this time RDN will order Nepro with meals to increase kcal, protein intake. Following.
--- NOTE | 2018-04-15 14:11 | NUR ---
LOWER ABD INCISION IS HEALING WELL. NO REDNESS, EDEMA OR ODOR. SCANT BLOODY DRAINAGE NOTED AFTER REMOVING DRESSING. NIKKI DRAIN INTACT WITH BULB COMPRESSED. APPROX 5ML OF SANGUINOUS DRAINAGE NOTED IN BULB. INCISION TO LEFT ANTECUBITAL IS INTACT WITH NO SIGNS OF INFECTION. CLEANSED ALL WOUNDS AND PATTED DRY. COVERED NIKKI SITE WITH WHITE BORDERED GAUZE AND ABDOMEN AND LEFT ARM WITH MEPILEX BORDER. PT TOLERATED WELL.
[2018-04-15 17:06] VITALS: BP 132/74
--- NOTE | 2018-04-15 19:27 | NUR ---
ASSESSMENT COMPLETE, PT A&O. RESPERATIONS EVEN ON RA. RIGHT CHEST HEMOSPLIT WITH DRSG INTACT. AV FISTULA NOTED TO LEFT ARM. 2 DRSGS NOTED TO LOWER ABD WITH NIKKI DRAIN TO LEFT DRSG WITH SMALL AMOUNT OF SEROUS SANGUINEOUS FLUID NOTED IN BULB. KRUEGER DRAINING TO GRAVITY. PT DENIES PAIN OR NEEDS, BED LOW, CL IN REACH.
[2018-04-15 20:00] VITALS: BP 128/67
[2018-04-16] VITALS: BP 130/76
[2018-04-16 04:58] LABS: BASOPHILS 0.3 % (0-2); EOSINOPHILS 1.2 % (0-7); HEMATOCRIT 28.3 % (42.0-54.0); HEMOGLOBIN 8.9 g/dL (13.5-17.5); IMMATURE GRANULOCYTES 0.8 % (0-5); LYMPHOCYTES 13.3 % (15-50); MCH 28.8 pg (26.0-34.0); MCHC 31.4 g/dL (31.0-37.0); MCV 91.6 fL (80.0-100.0); MEAN PLATELET VOLUME 10.1 fL (7.4-10.4); MONOCYTES 12.3 % (2-11); NEUTROPHILS 72.1 % (40-80); PLATELET COUNT 164 10x3/uL (130-400); RBC 3.09 10x6/uL (4.20-6.10); RDW 13.8 % (11.5-14.5); WBC 7.4 10x3/uL (4.8-10.8)
[2018-04-16 05:16] LABS: ALBUMIN 0.7 g/dL (3.4-5.0); ANION GAP 10.8 mmol/L (8-16); BILIRUBIN - TOTAL 0.14 mg/dL (0.2-1.3); CALCIUM 7.2 mg/dL (8.5-10.1); CARBON DIOXIDE 27.6 mmol/L (21.0-32.0); CREATININE - SERUM 5.2 mg/dL (0.6-1.3); PHOSPHOROUS 6.1 mg/dL (2.5-4.9); POTASSIUM - SERUM 3.4 mmol/L (3.5-5.1); PROTEIN - SERUM 3.9 g/dL (6.4-8.2)
[2018-04-16 05:20] VITALS: BP 128/81
--- NOTE | 2018-04-16 06:13 | NUR ---
LEFT LOWER ABD NIKKI DRAIN REMOVED, PT TOLERATED WELL.
--- NOTE | 2018-04-16 07:30 | NUR ---
RECEIVED PT UP AMBULATING IN ROOM AAOX4 RESP UNLABORED SKIN W/D DENIES ANY NEEDS AT THIS TIME
[2018-04-16 09:17] VITALS: BP 113/73
[2018-04-16 11:46] VITALS: BP 127/59
[2018-04-16 15:46] VITALS: BP 139/84
--- NOTE | 2018-04-16 19:33 | NUR ---
AMBULATING IN [place]SE[place], GAIT STEADY.
[2018-04-16 20:00] VITALS: BP 128/68
[2018-04-17] VITALS: BP 118/82
--- NOTE | 2018-04-17 03:45 | NUR ---
PT AROUSES TO NURSE ENTERING ROOM. PT ALERT AND ORIENTED. DENIES ANY NEEDS. NO S/S OF DISTRESS. RESP EVEN AND UNLABORED. FAMILY AT BEDSIDE. PT WILL CALL FOR ASSIST WHEN NEEDED. WILL CPOC
[2018-04-17 04:00] VITALS: BP 124/72
[2018-04-17 04:11] LABS: HEPATITIS BE ANTIBODY Negative (Negative)
--- NOTE | 2018-04-17 04:22 | NUR ---
RESTING WITH EYES CLOSED, RESPERATIONS EVEN, NO S/S DISTRESS NOTED.
[2018-04-17 06:11] LABS: BASOPHILS 0.6 % (0-2); EOSINOPHILS 2.3 % (0-7); HEMATOCRIT 28.2 % (42.0-54.0); HEMOGLOBIN 8.9 g/dL (13.5-17.5); IMMATURE GRANULOCYTES 1.1 % (0-5); MCH 29.1 pg (26.0-34.0); MCHC 31.6 g/dL (31.0-37.0); MCV 92.2 fL (80.0-100.0); MEAN PLATELET VOLUME 10.6 fL (7.4-10.4); PLATELET COUNT 166 10x3/uL (130-400); RBC 3.06 10x6/uL (4.20-6.10); RDW 13.7 % (11.5-14.5); WBC 7.2 10x3/uL (4.8-10.8)
[2018-04-17 06:26] LABS: ALBUMIN 0.7 g/dL (3.4-5.0); ALKALINE PHOSPHATASE 40 U/L (46-116); BILIRUBIN - TOTAL 0.23 mg/dL (0.2-1.3); CALC OSMOLALITY 292 mosm/kg (275-300); CALCIUM 7.2 mg/dL (8.5-10.1); CARBON DIOXIDE 25.3 mmol/L (21.0-32.0); CHLORIDE - SERUM 108 mmol/L (98-107); CREATININE - SERUM 5.4 mg/dL (0.6-1.3); GLUCOSE 84 mg/dL (74-106); POTASSIUM - SERUM 3.3 mmol/L (3.5-5.1); PROTEIN - SERUM 3.7 g/dL (6.4-8.2); SODIUM 142 mmol/L (136-145); UREA NITROGEN 42 mg/dL (7-18); eGFR NON AFRICAN AMERICAN 13 mL/min (90-120)
[2018-04-17 06:27] LABS: ALT (SGPT) < 6 U/L (10-68)
--- NOTE | 2018-04-17 07:10 | NUR ---
REPORT RECIEVED FROM SHINGLES ROOFER HELPER. PATIENT AMBULTING IN HALLWAY. MOTHER AT SIDE. PATIENT DENIES ANY NEEDS OR PAIN. WILL CONTINUE WITH PLAN OF CARE.
[2018-04-17 08:04] VITALS: BP 121/76
--- NOTE | 2018-04-17 09:10 | NUR ---
PATIENT ASSESMENT COMPLETED. PATIENT DENIES ANY NEEDS OR PAIN. WILL CONTINUE TO MONITOR,
--- NOTE | 2018-04-17 11:00 | NUR ---
PATIENT IS STABLE AND VS ARE GOOD. PATIENT TO DIALYSIS IN BED VIA HOSPITAL PERSONNEL.
[2018-04-17 11:20] LABS: HEPATITIS BE ANTIGEN Negative (Negative)
--- NOTE | 2018-04-17 13:45 | NUR ---
PATIENT RETURNED FROM DIALYSIS IN BED VIA HOSPITAL PERSONNEL. PATIENT IS STABLE AND VS ARE GOOD. PATIENT REQUEST KRUEGER BE REMOVED. SPOKE WITH SHAINA ASHER.INSTRUCTED TO CLAMP KRUEGER FOR BLADDER TRAINING. KRUEGER CLAMPED. WILL CONTINUE TO MONITOR VERY CLOSELY.
[2018-04-17 14:17] LABS: HEPATITIS C ANTIBODY <0.1 S/CO RAT (0.0-0.9)
--- NOTE | 2018-04-17 14:41 | NUR ---
Provided pt with education information on Renal diet RD following
[2018-04-17 15:28] VITALS: BP 144/82
--- NOTE | 2018-04-17 15:56 | NUR ---
PER DR DEL ROSARIO, PUT IN ORDER TO D/C PT TO HOME. PT TO F/U WITH [facility] ON Sunday04/19/18, ORDER NOTED.
--- NOTE | 2018-04-17 16:47 | NUR ---
Dialysis Coordinator: Patient accepted at [facility] on MWF. Arrive @ 3:50pm for 4:00pm on-time. Patient can start in-center on 04/19/18 @ 3:30pm for paperwork. Patient needs to bring 2 forms of ID and insurance cards to first appointment. Welcome Letter faxed to CM for patient. NISHANT POE.
--- NOTE | 2018-04-17 17:44 | MORECARE ---
CASE MANAGEMENT DISCHARGE SUMMARY PATIENT: ISIDRO JONES UNIT: [id number] ADM DATE: 04/08/18 AGE: 27 : [birth year] SEX: M ROOM/BED: D.2131 AUTHOR: KRUNAL TELLES PHYSICIAN: REFERRING PHYSICIAN: JL MCKEON MD DATE OF SERVICE: 04/17/18 Discharge Plan Patient Name: ISIDRO JONES Facility: [facility]:[place] : 1990 Planned Disposition: Home with Home Health Anticipated Discharge Date: 04/17/18 Discharge Date: Expected LOS: 9 Initial Reviewer: [email or web address] Initial Review Date: 04/11/2018 Generated: 04/17/18 6:44 pm Comments DCP- Discharge Planning Updated by [email or web address]: Elliott Ji on 04/17/18 4:[address] ORDER RECEIVED: to make arrangements for OP HD in [place]. CM spoke to Polina MUÑOZ who stated the patient is going to be new to hemodialysis and his first dialysis will be today post hemosplit placement. She stated that the patient will need to go to [place] as that is the only facility close to where he lives. Cm asked that she order the hepatitis panel and HIV. She stated they no longer require HIV testing. Hepatitis panel ordered. Cm faxed Admission intake form, facesheet, H&P, CXR, Progress notes, all hospital labs, with pending hepatitis panel, medication list with allergies listed at the top to [facility]. Cm left Stephanie Kim a message but no return call as it is Sunday and she only works [employer]. No operative report to fax at this time in the chart. CM will continue to follow and will assist as needed with dc plans/needs. Isamar Ahmadi Rn, [facility] DCP- Discharge Planning Updated by [id number]: Elliott Ji on 04/11/18 4:[address] Patient Name: ISIDRO JONES Admission Status: Elective Accout number: [id number] Admission Date: 04-08-2018 : 1990 Admission Diagnosis: Attending: JL CMKEON Current LOS: 3 Anticipated DC Date: 04-12-2018 Planned Disposition: Home with Home Health Primary Insurance: [place] PRIVATE OPTIONS [place] PLANNED EXTERNAL PROVIDER: [facility] Discharge Planning Comments: CM RECEIVED HOME HEALTH ORDER, MET WITH PT IN ROOM TO DISCUSS DISCHARGE PLANNING AND NEEDS. PT REPORTS LIVING AT HOME INDEPENDENTLY WITH PARENTS AND ADULT SISTER. PT HAS BLOOD PRESSURE MONITOR AND NO MEDICAL EQUIPMENT PROVIDER PREFERENCE. PT HAS NO OUTSIDE SERVICES ASSISTING IN THE HOME. PT IS NOT YET DOING OUTPATIENT DIALYSIS, BUT HAD A FISTULA CREATED FOR WHEN HE MAY NEED IT. CM DISCUSSED AVAILABILITY OF HOME HEALTH, REHAB SERVICES AND MEDICAL EQUIPMENT. PT WILL ACCEPT HOME HEALTH, REPORTS H IS SISTER TO BE A TEACHABLE CAREGIVER IN HOME. PT REPORTS HIS PARENTS WILL PICK HIM UP FOR DISCHARGE HOME TOMORROW. PT HAS NO PREFERENCE ON HOME HEALTH PROVIDER, CHOICE LETTER SIGNED. PT DENIES FURTHER DISCHARGE NEEDS. CM SPOKE TO TAMIKA OF CARE , DISCUSSED REFERRAL. TAMIKA THINKS PT MAY BE WITHIN THE SERVICE AREA FOR [facility]. CM CALLED [facility], , SPOKE TO ISAMAR AND PROVIDED REFERRAL INFORMATION. CM FAXED REFERRAL FOR HOME HEALTH TO [facility] AT [phone]. CM WAITING ACCEPTANCE DETERMINATION FROM [facility]. Clod Puller: Elliott Ji Appended by Elliott Ji on 04/11/2018 17:22 APPLICATION TESTER: CM RECEIVED CALL FROM ISAMAR OF [facility], THEY WILL ACCEPT PT AND PLAN FOR HOME HEALTH ADMISSION ON 04-13-18. FOR DISCHARGE, NOTIFY [facility] AT [phone]. FAX DISCHARGE INFORMATION TO [facility] AT [phone]. ELLIOTT JI, CASE MANAGEMENT DCPIA - Discharge Planning Initial Assessment Updated by [id number]: Elliott Ji on 04/11/18 1:37 pm * Is the patient Alert and Oriented? Yes * How many steps to enter\exit or inside your home? NONE * PCP JL MCKEON * [facility]acy [facility] * Preadmission Environment Home with Family * ADLs Independent * Equipment Other * Other Equipment BLOOD PRESSURE CUFF NO MEDICAL EQUIPMENT PROVIDER PREFERENCE * List name and contact numbers for known caregivers / representatives who currently or will assist patient after discharge: HNIA JONES, MOTHER, * Verbal permission to speak to the caregivers and representatives has been obtained from the patient. Yes * Community resources currently utilized None * Please name any agencies selected above. NONE * Additional services required to return to the preadmission environment? Yes * Can the patient safely return to the preadmission environment? Yes * Has this patient been hospitalized within the prior 30 days at any hospital? No Coverage Notice Reviewer: [email or web address] Kati Ji Notice Issued Date-Time: 04/11/2018 11:20 Notice Type: Patient Choice Letter Notice Delivered To: Patient Relationship to Patient: Orthopaedic Technologist Name: Delivery Method: HAND - Hand Delivered Dolores Days: Prior Verbal Notification: Recipient Understood Notice: Yes Recipient Signature: Yes Med Rec Note Co-signed by Attending: Coverage Notice Comment: NO HOME HEALTH PREFERENCE Last DP export: 04/13/18 4:08 pm Patient Name: ISIDRO JONES Page [id number] at 1744 All edits/amendments must be made on the electronic document DICTATION DATE: 04/17/181743 ELIGIBILITY COUNSELOR: JOHN 04/17/181743 RPT#: [id number] DC DATE: STATUS: ADM IN [facility] [address] [place] [address] END OF REPORT
--- NOTE | 2018-04-17 17:54 | MORECARE ---
CASE MANAGEMENT DISCHARGE SUMMARY PATIENT: ISIDRO JONES UNIT: [id number] ADM DATE: 04/08/18 AGE: 27 : [birth year] SEX: M ROOM/BED: D.2131 AUTHOR: ELFEGO,DOC PHYSICIAN: REFERRING PHYSICIAN: JL MCKEON MD DATE OF SERVICE: 04/17/18 Discharge Plan Patient Name: ISIDRO JONES Facility: [facility]:[place] : 1990 Planned Disposition: Home with Home Health Anticipated Discharge Date: 04/17/18 Discharge Date: Expected LOS: 9 Initial Reviewer: [email or web address] Initial Review Date: 04/11/2018 Generated: 04/17/18 6:54 pm Comments DCP- Discharge Planning Updated by [email or web address]: Petar Ji on 04/17/18 4:[address] Patient Name: ISIDRO JONES Encounter No: [id number] : 1990 Primary Insurance: [employer] [place] PRIVATE OPTIONS [place] Anticipated DC Date: 04-17-2018 Planned Disposition: Home DCP follow-up note: PATIENT HAS RECEIVED NEW DIALYSIS CLINIC ARRANGEMENT FROM PATIENT PATHWAYS COORDINATOR, CM RECEIVED DISCHARGE ORDER. BEDSIDE NURSE INFORMED JEFFREY THAT PT NO LONGER NEEDS HOME HEALTH FOR WOUND CARE AND DRAIN HAS BEEN REMOVED. JEFFREY SPOKE TO PT AND MOTHER IN ROOM, BOTH DENIED DISCHARGE NEEDS, PT'S MOTHER TO TRANSPORT HOME TODAY. CM CALLED [facility] AND CANCELLED HOME HEALTH REFERRAL. PETAR JI CASE EMELY DCP- Discharge Planning Updated by [email or web address]: Petar Ji on 04/17/18 4:[address] ORDER RECEIVED: to make arrangements for OP HD in [place]. JEFFREY spoke to Polina MUÑOZ who stated the patient is going to be new to hemodialysis and his first dialysis will be today post hemosplit placement. She stated that the patient will need to go to [place] as that is the only facility close to where he lives. Jeffrey asked that she order the hepatitis panel and HIV. She stated they no longer require HIV testing. Hepatitis panel ordered. Jeffrey faxed Admission intake form, facesheet, H&P, CXR, Progress notes, all hospital labs, with pending hepatitis panel, medication list with allergies listed at the top to [facility]. Jeffrey left Stephanie Kim a message but no return call as it is Sunday and she only works [employer]. No operative report to fax at this time in the chart. CM will continue to follow and will assist as needed with dc plans/needs. Isamar Ahmadi Rn, [facility] DCP- Discharge Planning Updated by [id number]: Petar Ji on 04/11/18 4:[address] Patient Name: ISIDRO JONES Admission Status: Elective Accout number: [id number] Admission Date: 04-08-2018 : 1990 Admission Diagnosis: Attending: JL MCKEON Current LOS: 3 Anticipated DC Date: 04-12-2018 Planned Disposition: Home with Home Health Primary Insurance: [place] PRIVATE OPTIONS [place] PLANNED EXTERNAL PROVIDER: [facility] Discharge Planning Comments: CM RECEIVED HOME HEALTH ORDER, MET WITH PT IN ROOM TO DISCUSS DISCHARGE PLANNING AND NEEDS. PT REPORTS LIVING AT HOME INDEPENDENTLY WITH PARENTS AND ADULT SISTER. PT HAS BLOOD PRESSURE MONITOR AND NO MEDICAL EQUIPMENT PROVIDER PREFERENCE. PT HAS NO OUTSIDE SERVICES ASSISTING IN THE HOME. PT IS NOT YET DOING OUTPATIENT DIALYSIS, BUT HAD A FISTULA CREATED FOR WHEN HE MAY NEED IT. CM DISCUSSED AVAILABILITY OF HOME HEALTH, REHAB SERVICES AND MEDICAL EQUIPMENT. PT WILL ACCEPT HOME HEALTH, REPORTS H IS SISTER TO BE A TEACHABLE CAREGIVER IN HOME. PT REPORTS HIS PARENTS WILL PICK HIM UP FOR DISCHARGE HOME TOMORROW. PT HAS NO PREFERENCE ON HOME HEALTH PROVIDER, CHOICE LETTER SIGNED. PT DENIES FURTHER DISCHARGE NEEDS. CM SPOKE TO TAMIKA OF [facility], DISCUSSED REFERRAL. TAMIKA THINKS PT MAY BE WITHIN THE SERVICE AREA FOR [facility]. CM CALLED [facility], , SPOKE TO ISAMAR AND PROVIDED REFERRAL INFORMATION. CM FAXED REFERRAL FOR HOME HEALTH TO [facility] AT [phone]. CM WAITING ACCEPTANCE DETERMINATION FROM [facility]. Nurse Sitter: Petar Ji Appended by Petar Ji on 04/11/2018 17:22 PRODUCTION CONTROL SPECIALIST: CM RECEIVED CALL FROM ISAMAR OF [facility], THEY WILL ACCEPT PT AND PLAN FOR HOME HEALTH ADMISSION ON 04-13-18. FOR DISCHARGE, NOTIFY [facility] AT [phone]. FAX DISCHARGE INFORMATION TO [facility] AT [phone]. PETAR JI, CASE MANAGEMENT DCPIA - Discharge Planning Initial Assessment Updated by [email or web address]: Petar Ji on 04/11/18 1:37 pm * Is the patient Alert and Oriented? Yes * How many steps to enter\exit or inside your home? NONE * PCP JL MCKEON * [facility] * Preadmission Environment Home with Family * ADLs Independent * Equipment Other * Other Equipment BLOOD PRESSURE CUFF NO MEDICAL EQUIPMENT PROVIDER PREFERENCE * List name and contact numbers for known caregivers / representatives who currently or will assist patient after discharge: HINA JONES, MOTHER, * Verbal permission to speak to the caregivers and representatives has been obtained from the patient. Yes * Community resources currently utilized None * Please name any agencies selected above. NONE * Additional services required to return to the preadmission environment? Yes * Can the patient safely return to the preadmission environment? Yes * Has this patient been hospitalized within the prior 30 days at any hospital? No Coverage Notice Reviewer: [id number] Kati Ji Notice Issued Date-Time: 04/11/2018 11:20 Notice Type: Patient Choice Letter Notice Delivered To: Patient Relationship to Patient: Sap Gatherer Name: Delivery Method: HAND - Hand Delivered Dolores Days: Prior Verbal Notification: Recipient Understood Notice: Yes Recipient Signature: Yes Med Rec Note Co-signed by Attending: Coverage Notice Comment: NO HOME HEALTH PREFERENCE Last DP export: 04/17/18 4:44 pm Patient Name: ISIDRO JONES Page 23918 at 1754 All edits/amendments must be made on the electronic document DICTATION DATE: 04/17/181752 JUNIOR LINUX ADMINISTRATOR: JOHN 04/17/181752 RPT#: [id number] DC DATE: STATUS: ADM IN [facility] [address] [place] [address] END OF REPORT
--- NOTE | 2018-04-18 13:07 | MORECARE ---
CASE MANAGEMENT DISCHARGE SUMMARY PATIENT: ISIDRO JONES UNIT: [id number] ADM DATE: 04/08/18 AGE: 27 : [birth year] SEX: M ROOM/BED: D.2131 AUTHOR: ELFEGO,DOC PHYSICIAN: REFERRING PHYSICIAN: JL MCKEON MD DATE OF SERVICE: 04/18/18 Discharge Plan Patient Name: ISIDRO JONES Facility: [facility]:[place] : 1990 Planned Disposition: Home with Home Health Anticipated Discharge Date: 04/17/18 Discharge Date: 04/17/2018 Expected LOS: 9 Initial Reviewer: [email or web address] Initial Review Date: 04/11/2018 Generated: 04/18/18 2:07 pm Comments DCP- Discharge Planning Updated by [email or web address]: Petar Ji on 04/17/18 4:[address] Patient Name: ISIDRO JONES Encounter No: [id number] : 1990 Primary Insurance: [employer] [place] PR[place] Anticipated DC Date: 04-17-2018 Planned Disposition: Home DCP follow-up note: PATIENT HAS RECEIVED NEW DIALYSIS CLINIC ARRANGEMENT FROM PATIENT PATHWAYS COORDINATOR, CM RECEIVED DISCHARGE ORDER. BEDSIDE NURSE INFORMED JEFFREY THAT PT NO LONGER NEEDS HOME HEALTH FOR WOUND CARE AND DRAIN HAS BEEN REMOVED. JEFFREY SPOKE TO PT AND MOTHER IN ROOM, BOTH DENIED DISCHARGE NEEDS, PT'S MOTHER TO TRANSPORT HOME TODAY. JEFFREY CALLED [facility] AND CANCELLED HOME HEALTH REFERRAL. FLORIDALMA MAURER DCP- Discharge Planning Updated by [id number]: Petar Ji on 04/17/18 4:[address] ORDER RECEIVED: to make arrangements for OP HD in [place]. JEFFREY spoke to Polina MUÑOZ who stated the patient is going to be new to hemodialysis and his first dialysis will be today post hemosplit placement. She stated that the patient will need to go to [place] as that is the only facility close to where he lives. Jeffrey asked that she order the hepatitis panel and HIV. She stated they no longer require HIV testing. Hepatitis panel ordered. Jeffrey faxed Admission intake form, facesheet, H&P, CXR, Progress notes, all hospital labs, with pending hepatitis panel, medication list with allergies listed at the top to Yaritza. Cm left Stephanie Kim a message but no return call as it is Sunday and she only works [employer]. No operative report to fax at this time in the chart. CM will continue to follow and will assist as needed with dc plans/needs. Isamar Ahmadi Rn, [facility] DCP- Discharge Planning Updated by [id number]: Petar Ji on 04/11/18 4:[address] Patient Name: ISIDRO JONES Admission Status: Elective Accout number: [id number] Admission Date: 04-08-2018 : 1990 Admission Diagnosis: Attending: JL MCKEON Current LOS: 3 Anticipated DC Date: 04-12-2018 Planned Disposition: Home with Home Health [place] PRIVATE [place] PLANNED EXTERNAL PROVIDER: [facility] Discharge Planning Comments: CM RECEIVED HOME HEALTH ORDER, MET WITH PT IN ROOM TO DISCUSS DISCHARGE PLANNING AND NEEDS. PT REPORTS LIVING AT HOME INDEPENDENTLY WITH PARENTS AND ADULT SISTER. PT HAS BLOOD PRESSURE MONITOR AND NO MEDICAL EQUIPMENT PROVIDER PREFERENCE. PT HAS NO OUTSIDE SERVICES ASSISTING IN THE HOME. PT IS NOT YET DOING OUTPATIENT DIALYSIS, BUT HAD A FISTULA CREATED FOR WHEN HE MAY NEED IT. CM DISCUSSED AVAILABILITY OF HOME HEALTH, REHAB SERVICES AND MEDICAL EQUIPMENT. PT WILL ACCEPT HOME HEALTH, REPORTS H IS SISTER TO BE A TEACHABLE CAREGIVER IN HOME. PT REPORTS HIS PARENTS WILL PICK HIM UP FOR DISCHARGE HOME TOMORROW. PT HAS NO PREFERENCE ON HOME HEALTH PROVIDER, CHOICE LETTER SIGNED. PT DENIES FURTHER DISCHARGE NEEDS. CM SPOKE TO TAMIKA OF [facility], DISCUSSED REFERRAL. TAMIKA THINKS PT MAY BE WITHIN THE SERVICE AREA FOR [facility]. CM CALLED [facility], , SPOKE TO ISAMAR AND PROVIDED REFERRAL INFORMATION. CM FAXED REFERRAL FOR HOME HEALTH TO [facility] AT [phone]. CM WAITING ACCEPTANCE DETERMINATION FROM [facility]. Telesales Representative: Petar Ji Appended by Petar Ji on 04/11/2018 17:22 SUPERVISOR STRIPPING: CM RECEIVED CALL FROM ISAMAR OF [facility], THEY WILL ACCEPT PT AND PLAN FOR HOME HEALTH ADMISSION ON 04-13-18. FOR DISCHARGE, NOTIFY [facility] AT [phone]. FAX DISCHARGE INFORMATION TO [facility] AT [phone]. PETAR JI, CASE MANAGEMENT DCPIA - Discharge Planning Initial Assessment Updated by [email or web address]: Petar Ji on 04/11/18 1:37 pm * Is the patient Alert and Oriented? Yes * How many steps to enter\exit or inside your home? NONE * PCP JL MCKEON * Pharmacy [facility] * Preadmission Environment Home with Family * ADLs Independent * Equipment Other * Other Equipment BLOOD PRESSURE CUFF NO MEDICAL EQUIPMENT PROVIDER PREFERENCE * List name and contact numbers for known caregivers / representatives who currently or will assist patient after discharge: HINA JONES, MOTHER, * Verbal permission to speak to the caregivers and representatives has been obtained from the patient. Yes * Community resources currently utilized None * Please name any agencies selected above. NONE * Additional services required to return to the preadmission environment? Yes * Can the patient safely return to the preadmission environment? Yes * Has this patient been hospitalized within the prior 30 days at any hospital? No Coverage Notice Reviewer: [id number] - Petar Ji Notice Issued Date-Time: 04/11/2018 11:20 Notice Type: Patient Choice Letter Notice Delivered To: Patient Relationship to Patient: Associate Consulting Engineer Name: Delivery Method: HAND - Hand Delivered Dolores Days: Prior Verbal Notification: Recipient Understood Notice: Yes Recipient Signature: Yes Med Rec Note Co-signed by Attending: Coverage Notice Comment: NO HOME HEALTH PREFERENCE Last DP export: 04/17/18 4:54 pm Patient Name: ISIDRO JONES Page [id number] at 1307 All edits/amendments must be made on the electronic document DICTATION DATE: 04/18/18 1307 MONEY ROOM TELLER: JOHN 04/18/18 1307 RPT#: [id number] DC DATE:04/17/18 STATUS: DIS IN [facility] [address] [place] [address] END OF REPORT
--- NOTE | 2018-04-26 13:37 | OP ---
PATIENT NAME: ISIDRO JONES MEDICAL RECORD: [id number] :[birth year] LOCATION:D.M2 D.1 ADMISSION DATE:04/08/18 SURGEON: MOMO MEJIA MD DATE OF OPERATION: 04/13/2018 The patient was referred to me by Dr. Anabell Chavis. His attending physician in the hospital is Dr. Wise. PREOPERATIVE DIAGNOSES: Worsening renal function now with CKD V and requiring initiation of dialysis. POSTOPERATIVE DIAGNOSES: Worsening renal function now with CKD V and requiring initiation of dialysis. OPERATION PERFORMED: Insertion of a right internal jugular 19-cm HemoSplit dialysis catheter using ultrasound as well as fluoroscopic guidance. SURGEON: Momo Mejia MD ANESTHESIA: General with an LMA per Dr. Carias and MARINE ENGINEER. PREOPERATIVE NOTE: Mr. Jones is a 27-year-old white male patient with chronic glomerulosclerosis and nephrotic syndrome. He was operated last week for repair of a symptomatic chronically incarcerated umbilical/ventral hernia, which was a complex repair requiring mesh and also he had an AV fistula constructed. Postop, he has had some problems that has kept him in the hospital and had a steady decline in his renal function and he is now going to start hemodialysis tonight after I place a catheter. DESCRIPTION OF PROCEDURE: Under general anesthesia with an LMA per Dr. Carias and then a MARINE ENGINEER, the patient was placed in supine position, prepped and draped in sterile manner. The head was turned to the left and the patient positioned in a Trendelenburg position. Ultrasound was used to locate the right internal jugular vein. It was of normal caliber and fully compressible. An incision was made over at the base of the neck and through that incision, a micropuncture needle and wire were inserted and subsequently wire and catheter exchanges led up to passage of serial dilators over a 0.038 wire and lastly a dilator peel-away sheath was inserted all under fluoroscopy. I chose a 19-cm HemoSplit. Made an incision beneath the clavicle and pulled the HemoSplit from there through a subcutaneous tunnel up to the cervical incision and inserted it then through the peel-away sheath. Fluoroscopy demonstrated satisfactory positioning in the right atrium. Both lumens of the catheter were accessed and aspirated, free return of blood confirmed. They were then flushed with saline and lastly heparin locked, clamped and capped. The Dacron felt cuff was positioned midway in the tunnel between the exit site and the cervical wound. The cervical incision was closed with interrupted inverted 3-0 Vicryl and Dermabond glue and dressed with Maxorb Ag, Tegaderm, and Cavilon skin prep. The catheter entry site was snugged up around the catheter with a single inverted subcuticular 3-0 Vicryl suture and the catheter was sutured to the skin near the entry site with 2-0 Prolene. A chlorhexidine Biopatch was applied and a further sterile standard CVL dressing over that. The patient was awakened from his anesthetic and taken to the recovery room in stable condition. Blood loss was less than 5 cc, none was replaced. Sponges, instruments, and needles were accounted for. No drain was used and no surgical specimen was OPERATIVE REPORT [id number] ISIDRO JONES submitted for histopathology. The patient is being returned to his room on med 2 now at about 4:30 in the afternoon. He will have dialysis this evening. TRANSINT:[id number] Voice Confirmation ID: [id number] DOCUMENT ID: [id number] MOMO MEJIA MD at 1337 CC: JASON WISE MD and ANABELL CHAVIS [id number] DICTATION DATE: 04/13/18 1622 CHOPPED STRAND OPERATOR: 04/14/18 0138 DIS IN 04/17/18 [id number] [place] [address]
--- NOTE | 2018-04-26 13:37 | OP ---
PATIENT NAME: ISIDRO JONES MEDICAL RECORD: [id number] :[birth year] LOCATION:D.M2 D.2131 ADMISSION DATE:04/08/18 SURGEON: MOMO MEJIA MD DATE OF OPERATION: 04/09/2018 REFERRING PHYSICIAN: Anabell Chavis MD PREOPERATIVE DIAGNOSES: 1. Chronically incarcerated umbilical hernia. 2. Chronic kidney disease stage IV-V. 3. Chronic nephrotic syndrome. POSTOPERATIVE DIAGNOSES: 1. Chronically incarcerated umbilical hernia. 2. Chronic kidney disease stage IV-V. 3. Chronic nephrotic syndrome. OPERATIONS PERFORMED: 1. Creation of left brachial artery to cephalic vein arteriovenous fistula. 2. Open repair of chronically incarcerated umbilical hernia using a size large Ventralex ST mesh placed intraperitoneally with resection of chronically incarcerated omentum and hernia sac. ANESTHESIA: Regional block for the left arm and general anesthesia with LMA per INTERNAL COMMUNICATIONS MANAGER for the umbilical hernia. SURGEON: Momo Mejia MD PREOPERATIVE NOTE: Mr. Jones is a chronically ill 27-year-old white male, patient of Dr. Anabell Chavis. The patient has hypertension and chronic glomerulonephritis with nephrotic syndrome with history of hyperlipidemia and deep vein thrombosis. He also has symptomatic chronically incarcerated umbilical hernia. He is on steroids, prednisone 10 mg daily. He is also chronically anticoagulated with Xarelto, but is presently in heparin or Lovenox window. His last dose of Lovenox was yesterday evening. He is brought to the operating room now to create a preemptive fistula for dialysis access in the near future and to repair the hernia. I have discussed with the patient and his family the fact that he is at risk for complications associated with wound healing, particularly of his hernia due to his very low serum proteins. He does not clinically have ascites thankfully. Under anesthesia, the patient was prepped and draped in sterile manner. I examined him with ultrasound using a venous tourniquet and topical nitroglycerin, and then decided to do brachiocephalic fistula. Through a transverse antecubital incision, I exposed the vein and dissected free of surrounding structures. It was ligated distally with Vicryl, transected, bevelled, prepared for anastomosis, flushed with heparinized saline, and treated with topical papaverine. The brachial artery was exposed and controlled with Silastic loops. Also, it was treated with topical papaverine. The artery was opened and flushed proximally and distally with heparinized saline, after which an end of vein to side of artery anastomosis was performed with continuous running 7-0 Prolene. The anastomosis was hemostatic. Flow developed immediately with release of the occluding loops and clamps. Doppler flow signals were excellent and there was preservation of an excellent radial artery OPERATIVE REPORT [id number] ISIDRO JONES Doppler flow signal at the wrist. The wound was closed with interrupted inverted 3-0 Vicryl and running intracuticular 4-0 Monocryl. Standard dressing applied. The patient's abdomen had been prepped and draped earlier and it was then exposed. A curved transversely oriented incision was made beneath the umbilicus and the incision was carried down to the anterior rectus sheath with electrocautery. The tissues were very edematous and bled and oozed continuously. The patient was given 20 mcg of DDAVP at this point to help control the persistent oozing and this was very helpful. The sac was resected. The neck of the hernia had about a 1.5-cm diameter. The chronically incarcerated omentum was then reduced, though portion was resected and ligated with Vicryl due to some chronic inflammatory changes and fat necrosis. I then placed a size large Ventralex ST mesh into the abdominal cavity and pulled this up against the anterior abdominal wall. I made sure that there was no bowel trapped between the mesh and the peritoneum. The mesh was held up with straps as the fascia was closed transversely with interrupted [id number] #0 Vicryl and some additional #0 Prolene sutures. The straps and some of the underlying mesh was incorporated in these sutures to hold it in position. The excess strap Marlex was cut away. The wound was irrigated with saline and further closed with interrupted inverted 3-0 Vicryl. A 10-mm flat fluted drain was left at the base of the incision, brought out to the left through a separate stab incision and attached to suction. Skin was closed with running intracuticular 4-0 Monocryl and Dermabond glue, and sterile dressing applied. The patient was awakened from his anesthetic and taken to the recovery room. Blood loss during the operation was probably 20 cc, was unreplaced. Sponges, instruments, and needles were accounted for. One drain was used as I described. The surgical specimens consisted of resected sac and omentum. PLAN: The patient will stay in the hospital as an inpatient so that we can keep a close eye on the amount of wound drainage and be certain that he is receiving his Lovenox starting again in the morning, that he has SCD compression boots on this evening, begins early ambulation tomorrow. His predinsone was never discontinued. TRANSINT:[id number] Voice Confirmation ID: [id number] DOCUMENT ID: [id number] MOMO MEJIA MD at 1337 CC: ANABELL CHAVIS [id number] DICTATION DATE: 04/09/18 1628 INTERRELATED SPECIAL EDUCATION TEACHER: 04/09/18 1832 DIS IN 04/17/18 [facility] [address] [place] [address]
== END 2018-04-17 17:45 | disposition home health service (06) | DRG 674 ==
LOC: D.M2 19:56 → D.OPS 04-09 08:00 → EDSTATUS 04-09 12:15 → D.OPS 04-09 12:15 → D.SDCHOLD 04-09 12:15 → D.M2 04-17 17:45
PROVIDERS: Internal Medicine; Surgery; ADMIT Internal Medicine Nephrology
PROC: 03180ZF Bypass Left Brachial Artery to Lower Arm Vein, Open Approach (ICD-10-PCS; principal; 2018-04-09 12:00)
PROC: 0WUF0JZ Supplement Abdominal Wall with Synthetic Substitute, Open Approach (ICD-10-PCS; 2018-04-09 12:00)
PROC: 0JH63XZ Insertion of Tunneled Vascular Access Device into Chest Subcutaneous Tissue and Fascia, Percutaneous Approach (ICD-10-PCS; 2018-04-13)
PROC: 02H633Z Insertion of Infusion Device into Right Atrium, Percutaneous Approach (ICD-10-PCS; 2018-04-13)
PROC: B2141ZZ Fluoroscopy of Right Heart using Low Osmolar Contrast (ICD-10-PCS; 2018-04-13)
DX: I12.0 Hypertensive chronic kidney disease with stage 5 chronic kidney disease or end stage renal disease (principal); N18.5 Chronic kidney disease, stage 5; K42.9 Umbilical hernia without obstruction or gangrene; D63.1 Anemia in chronic kidney disease; R33.9 Retention of urine, unspecified; E83.39 Other disorders of phosphorus metabolism